=== PATIENT | female | born 1960 | race Two or more races ===

== ENCOUNTER 2017-03-24 08:50 | Emergency (ER) | payer SELFPAY ==
[2017-03-24 08:57] VITALS: BP 160/83; PULSE 98; TEMP 98.4
[2017-03-24] MEDS ORDERED: ONDANSETRON *ODT* 4 MG TABLET SL ONE (10:44)
[2017-03-24] MEDS ORDERED: ONDANSETRON *ODT* 4 MG TABLET ONE (10:48)
--- NOTE | 2017-03-24 10:49 | PDOC ---
History of Present Illness - General Chief Complaint: Pain, Acute Stated Complaint: LT KNEE PAIN Time Seen by Provider: 03/24/17 09:31 History Source: Patient, Family (daughter) Exam Limitations: No Limitations - History of Present Illness Initial Comments: 03/24/17 10:44 56 yr female slipped on wet floor and fell on her left knee at home this am. no loc no head trauma. Occurred: reports: this morning Severity: Yes: severe Lower Ext. Injury Location - Specific Injury Location Knees: left bone tenderness (patella), left swelling, left pain Past History - Past Medical History Allergies/Adverse Reactions: Allergies Allergy/AdvReac Type Severity Reaction Status Date / Time No Known Allergies Allergy Verified 03/24/17 08:52 Home Medications: Ambulatory Orders Oxycodone HCl/Acetaminophen [Percocet 5-325 mg Tablet] 1 tab PO Q6H PRN #12 tablet MDD 6 tabs 03/24/17 Diabetes: Yes - Immunization History Immunization Up to Date: Yes - Psycho/Social/Smoking Cessation Hx Suicidal Ideation: No Smoking History: Never smoked Have you smoked in the past 12 months: No Information on smoking cessation initiated: No Hx Alcohol Use: No Drug/Substance Use Hx: No Substance Use Type: None Review of Systems - Review of Systems Able to Perform ROS?: Yes Is the patient limited Turkish proficient: No Constitutional: No: Symptoms Reported HEENTM: No: Symptoms Reported Respiratory: No: Symptoms reported Cardiac (ROS): No: Symptoms Reported ABD/GI: No: Symptoms Reported Musculoskeletal: Yes: Symptoms Reported Integumentary: No: Symptoms Reported Neurological: No: Symptoms reported *Physical Exam - Vital Signs Last Vital Signs Temp Pulse Resp BP Pulse Ox 98.4 F 98 H 14 160/83 100 03/24/17 08:53 03/24/17 08:53 03/24/17 08:53 03/24/17 08:53 03/24/17 08:53 - Physical Exam General Appearance: Yes: Nourished, Appropriately Dressed HEENT: positive: EOMI, BAILEE Extremity: positive: Normal Capillary Refill, Tender, Swelling (left knee ) Integumentary: positive: Normal Color, Dry, Warm Neurologic: positive: Fully Oriented, Alert, Normal Mood/Affect, Normal Response , Motor Strength 5/5 ED Treatment Course - RADIOLOGY Radiology Studies Ordered: Category Date Time Status KNEE 3 POS-LEFT [RAD] Stat Radiology 03/24/17 09:42 Completed - Consult/PCP Time Called: 10:49 Case discussed with consulting physician: Hipolito Smith Consult Reason/Comments: case discussed with ortho, knee immobilizer and weight bear as tolerated Medical Decision Making - Medical Decision Making 03/24/17 10:49 cc: slip and fall injured left knee this am on wet floor swelling to the knee will place ice and give pain meds xray to r/o fracture case discussed with xray was reviewed by him . plan to dc home with knee immobilizer, weight bear as tolerated call to make appointment for next week discussed the dc plan with the pt and her daughter all questions asked and answered at dc *DC/Admit/Observation/Transfer Diagnosis at time of Disposition: Left patella fracture Qualifiers: Encounter type: initial encounter Fracture type: closed Fracture morphology: transverse Fracture alignment: displaced Qualified Code(s): S82.032A - Displaced transverse fracture of left patella, initial encounter for closed fracture - Discharge Dispostion Disposition: HOME Condition at time of disposition: Fair - Prescriptions Prescriptions: Oxycodone HCl/Acetaminophen [Percocet 5-325 mg Tablet] 1 tab PO Q6H PRN #12 tablet MDD 6 tabs PRN Reason: Severe Pain - Referrals Referrals: Mandy Quinn MD [Primary Care Provider] - Hipolito Smith MD [Staff Physician] - - Patient Instructions Additional Instructions: please call the orthopedist at [phone] to make appointment for next week make sure you tell the office staff that is aware of your xray and said to make appointment as you will need surgery keep the splint on your knee at all times no walking, you may weight bear as tolerated to get to the bathroom please take the percocet for severe pain with food
== END 2017-03-24 11:14 | disposition home or self-care (01) ==
LOC: JERFT 08:50
PROC: 2W3RXYZ Immobilization of Left Lower Leg using Other Device (ICD-10-PCS; principal; 2017-03-24)
DX: S82.032A Displaced transverse fracture of left patella, initial encounter for closed fracture (principal); W01.0XXA Fall on same level from slipping, tripping and stumbling without subsequent striking against object, initial encounter; Y93.89 Activity, other specified; Y92.038 Other place in apartment as the place of occurrence of the external cause; Y99.8 Other external cause status
CPT/HCPCS: 73562-TC-LT; 99281-25

== ENCOUNTER 2017-04-14 07:57 | Day surgery (SDC) | payer OTHER ==
[2017-04-14 08:25] VITALS: BMI 31.5
[2017-04-14] MEDS ORDERED: MIDAZOLAM HCL 2 MG/2 ML SINGLE DOSE VIAL ONE ×2 (08:31→08:35)
[2017-04-14] MEDS ORDERED: KETOROLAC TROMETHAMINE 30 MG/1 ML VIAL ONE (08:32)
[2017-04-14] MEDS ORDERED: ONDANSETRON 4 MG/2 ML VIAL ONE (08:32)
[2017-04-14] MEDS ORDERED: DEXAMETHASONE SOD PHOSPHATE 4 MG/1 ML VIAL ONE (08:32)
[2017-04-14] MEDS ORDERED: ceFAZolin SODIUM 1 GM VIAL ONE (08:32)
[2017-04-14] MEDS ORDERED: ROPIVACAINE HCL 0.5% 30ML VIAL ONE (08:35)
[2017-04-14] MEDS ORDERED: DEXAMETHASONE SOD PHOSPHATE/PF 10 MG/ML SDV ONE (08:35)
[2017-04-14] MEDS ORDERED: oxyCODONE HCL 5 MG TABLET PO PRN ×2 (09:18)
[2017-04-14] MEDS ORDERED: ONDANSETRON 4 MG/2 ML VIAL IVPUSH PRN (09:18)
[2017-04-14] MEDS ORDERED: LACTATED RINGERS SOLUTION 1,000 ML IV SCH (09:30)
--- NOTE | 2017-04-14 11:08 | SURG ---
Surgery South Asian History Professor Note South Asian History Professor: Nicolasa Renee PA-C Date of Service: 04/14/17 Diagnosis: left patella fracture Procedure: Open reduction internal fixation of left patella fracture I was present for the entirety of the operative procedure. For further detail, please refer to operative report. Visit type - Case Type Case Type: Scheduled Admission - Emergency Emergency Visit: No - New patient This patient is new to me today: Yes Date on this admission: 04/14/17
--- NOTE | 2017-04-14 11:08 | OP ---
Operative Note - Note: Operative Date: 04/14/17 Pre-Operative Diagnosis: left patella fracture Operation: Open reduction internal fixation of left patella fracture Post-Operative Diagnosis: Same as Pre-op Surgeon: Damien Slaughter Nurse Charge Rn: Nicolasa Renee Anesthesia: Local (Block) Estimated Blood Loss (mls): 1,000 Operative Report Dictated: Yes
--- NOTE | 2017-04-14 11:34 | OP ---
DATE OF OPERATION: 04/14/2017 PREOPERATIVE DIAGNOSIS: Left displaced patellar fracture. POSTOPERATIVE DIAGNOSIS: Left displaced patellar fracture. PROCEDURE: Left patella open reduction and internal fixation. SURGEON: Damien Prather MD COIN MACHINE ASSEMBLER: MELA Mak, whose skillful assistance was necessary for the safe and timely performance of the procedure. Ms. Renee was able to provide limb positioning assistance, retraction, help with reduction, as well as fixation and insertion of hardware. ANESTHESIA TYPE: Regional plus general. CONDITION: Postoperative condition was stable. COMPLICATIONS: None. INDICATIONS: This is a pleasant woman who suffered a patellar fracture. It was widely displaced. Treatment options including nonoperative versus operative management were discussed. Operative intervention was suggested as the best option to restore the extensor mechanism. The operative risks were reviewed in detail including bleeding, infection, neurovascular injury, need for further surgery, postoperative pain and stiffness, nonunion, malunion, hardware failure, or cut out. We discussed the recovery from surgery. We discussed the use of DVT prophylaxis with aspirin. I reviewed perioperative antibiotic prophylaxis. I addressed all of the patient's questions. We utilized the rotary cutter to be sure of adequate understanding. She voiced understanding and elected to proceed. DESCRIPTION OF PROCEDURE: The patient was brought to the operating room after administration of regional block in the preoperative holding area. The left lower extremity was then prepped and draped in the usual sterile fashion. A preoperative dose of antibiotic was given and the usual time-out procedure was performed. At this point, the limb was elevated and the tourniquet was inflated to 250 mmHg. An incision was carried out in the midline over the patella. This was carried down through skin and subcutaneous tissue. Blunt spreading was used to expose the fracture site, which was widely displaced. The distal pole was highly comminuted and no intact fragments which would support a screw were identified. Both ends were now debrided. It was decided to perform a suture repair in order to provide scientology of the patella. The inferior pole of the patella as well as the attached patellar tendon was now whip-stitched. Three drill holes were now made into the body of the patella utilizing K-wire guidewire placement in order to ensure the correct trajectory. The sutures were now passed through the tunnels. They were tunneled under the periosteum of the proximal patella in order to bury the knots. Maintaining the leg in full extension, all the sutures were now tied. This now brought the inferior pole of the patella into direct approximation with the distal portion of the fracture. The retinaculum, which had been previously dissected free from the surrounding soft tissue, was now repaired using number 1 Vicryl. The deep subcutaneous tissue was approximated using 2-0 Vicryl. The subcutaneous tissue was approximated using 3-0 Vicryl. The skin was closed using running 3-0 nylon. Sterile dressings were placed. The tourniquet was let down. The patient was transferred to the recovery room in stable condition after placement of a cylinder cast. DAMIEN PRATHER M.D. [id number]
[2017-04-14 12:42] VITALS: TEMP 97.5
[2017-04-14 14:30] VITALS: BP 119/62; PULSE 90
== END 2017-04-14 14:33 | disposition home or self-care (01) ==
LOC: FASU 07:57
PROVIDERS: ATTEND Orthopaedic Surgery Sports Medicine
PROC: 0QSF04Z Reposition Left Patella with Internal Fixation Device, Open Approach (ICD-10-PCS; 2017-04-14)
PROC: 0QBF0ZZ Excision of Left Patella, Open Approach (ICD-10-PCS; principal; 2017-04-14 09:31)
DX: S82.002A Unspecified fracture of left patella, initial encounter for closed fracture (principal); X58.XXXA Exposure to other specified factors, initial encounter; Y93.9 Activity, unspecified; Y92.9 Unspecified place or not applicable
CPT/HCPCS: 94760; 97116-GP

== ENCOUNTER 2018-03-27 20:55 | Emergency (ER) | payer OTHER ==
[2018-03-27 21:18] VITALS: BMI 25.2
--- NOTE | 2018-03-27 21:19 | PDOC ---
Rapid Medical Evaluation Chief Complaint: Nausea/Vomiting Time Seen by Provider: 03/27/18 21:13 Medical Evaluation: Allergies Allergy/AdvReac Type Severity Reaction Status Date / Time No Known Allergies Allergy Verified 04/05/17 12:02 03/27/18 21:15 This patient had a brief in-person evaluation by me The patient has a chief complaint of: chills and bodyaches x 1 week. Patient reports bodyaches and chronic coughing. Denies nasal congestion The pertinent physical findings are: appears ill, even and unlabored heart s1s2 The following orders have been placed: labs ordered This patient will proceed to the ED for further evaluation. Discharge Disposition - Referrals Referrals: Mandy Quinn MD [Primary Care Provider] - - Patient Instructions - Post Discharge Activity
[2018-03-27 21:45] LABS: BASO % 0.1 % (0-2.0); EOS % 0.2 % (0-4.5); HEMATOCRIT 29.6 % (32.4-45.2); HEMOGLOBIN 10.3 GM/dL (10.7-15.3); LYMPH % 5.1 % (8-40); MCH 30.4 pg (25.7-33.7); MCHC 34.9 g/dl (32.0-36.0); MEAN CELL VOLUME 87.1 fl (80-96); MEAN PLT VOLUME 7.4 fl (7.5-11.1); MONO % 7.3 % (3.8-10.2); NEUT % 87.3 % (42.8-82.8); PLATELET COUNT 202 K/MM3 (134-434); RDW 13.7 % (11.6-15.6); WHITE BLOOD COUNT 8.9 K/mm3 (4.0-10.0)
[2018-03-27 22:08] LABS: ALBUMIN 3.4 g/dl (3.4-5.0); ANION GAP 10 MMOL/L (8-16); BILIRUBIN,TOTAL 0.5 mg/dL (0.2-1); BLOOD UREA NITROGEN 40 mg/dL (7-18); CALCIUM 8.4 mg/dL (8.5-10.1); CHLORIDE 97 mmol/L (98-107); CO2 25 mmol/L (21-32); CREATININE 2.1 mg/dL (0.55-1.3); POTASSIUM 4.6 mmol/L (3.5-5.1); SGOT/AST 11 U/L (15-37); SGPT/ALT 14 U/L (13-61); SODIUM 132 mmol/L (136-145); TOT PROT 7.2 g/dl (6.4-8.2)
[2018-03-27 22:09] LABS: ALK PHOS 115 U/L (45-117)
[2018-03-27] MEDS ORDERED: SODIUM CHLORIDE 1,000 ML IV STA (22:09)
--- NOTE | 2018-03-27 22:09 | PDOC ---
History of Present Illness - General History Source: Patient Exam Limitations: Language Barrier (daughter translating ) - History of Present Illness Initial Comments: 03/27/18 22:11 57 yo female pmh of diabetes and UTI presents to the ED for 1 week of fevers and chills. Patient admits to right and left LQ pain along the inguinal ligament along with increased frequency and burning on urination for the past 1 week and 2 episodes of NB/NB vomiting for the past 2 days. Denies blood in urine , CP, SOB or changes in bowel habits. <Antonio Rollins - Last Filed: 03/27/18 22:42> <Philly Hyman - Last Filed: 03/28/18 01:01> <Angelica Ely - Last Filed: 03/28/18 04:23> - General Chief Complaint: Nausea/Vomiting Stated Complaint: FEVER, VOMITTING Time Seen by Provider: 03/27/18 21:13 Past History - Past Medical History Anemia: No Asthma: No Cancer: No Cardiac Disorders: No CVA: No COPD: No CHF: No Dementia: No Diabetes: Yes GI Disorders: No Disorders: No HTN: No Hypercholesterolemia: No Liver Disease: No Seizures: No Thyroid Disease: No - Surgical History Abdominal Surgery: No Appendectomy: No Cardiac Surgery: No Cholecystectomy: No Lung Surgery: No Neurologic Surgery: No Orthopedic Surgery: No - Immunization History Immunization Up to Date: Yes - Suicide/Smoking/Psychosocial Hx Smoking History: Never smoked Have you smoked in the past 12 months: No Information on smoking cessation initiated: No Hx Alcohol Use: No Drug/Substance Use Hx: No Substance Use Type: None <Antonio Rollins - Last Filed: 03/27/18 22:42> <Philly Hyman - Last Filed: 03/28/18 01:01> <Angelica Ely - Last Filed: 03/28/18 04:23> - Past Medical History Allergies/Adverse Reactions: Allergies Allergy/AdvReac Type Severity Reaction Status Date / Time No Known Allergies Allergy Verified 03/27/18 21:18 Home Medications: Ambulatory Orders Metformin HCl 850 mg PO BID 04/05/17 Review of Systems - Review of Systems Constitutional: Yes: Chills, Fever. No: Weakness Respiratory: No: Shortness of Breath Cardiac (ROS): No: Chest Pain ABD/GI: Yes: Nausea, Vomiting. No: Constipated, Diarrhea : Yes: Burning, Dysuria, Frequency. No: Flank Pain, Hematuria Musculoskeletal: No: Back Pain Neurological: Yes: Numbness (bilateral hands and feet). No: Weakness <Antonio Rollins - Last Filed: 03/27/18 22:42> *Physical Exam - Vital Signs Last Vital Signs Temp Pulse Resp BP Pulse Ox 102.6 F H 128 H 16 110/57 95 03/27/18 21:13 03/27/18 21:13 03/27/18 21:13 03/27/18 21:13 03/27/18 21:13 - Physical Exam General Appearance: Yes: Nourished, Appropriately Dressed. No: Apparent Distress HEENT: positive: EOMI Respiratory/Chest: positive: Lungs Clear, Normal Breath Sounds. negative: Crackles, Rales Cardiovascular: positive: Regular Rhythm, S1, S2, Tachycardia. negative: Edema , JVD, Murmur Vascular Pulses: Dorsalis-Pedis (R): 4+, Doralis-Pedis (L): 4+ Gastrointestinal/Abdominal: positive: Normal Bowel Sounds, Other (no suprapubic or CVA tenderness). negative: Pulsatile Mass, Distended, Guarding, Rebound, Tenderness Neurologic: positive: Fully Oriented, Alert, Normal Mood/Affect, Normal Response <Antonio Rollins - Last Filed: 03/27/18 22:42> - Vital Signs Last Vital Signs Temp Pulse Resp BP Pulse Ox 99.5 F 99 H 19 110/76 98 03/28/18 00:07 03/28/18 00:07 03/28/18 00:07 03/28/18 00:07 03/28/18 00:07 <Philly Hyman - Last Filed: 03/28/18 01:01> - Vital Signs Last Vital Signs Temp Pulse Resp BP Pulse Ox 98.5 F 115 H 19 121/74 98 03/28/18 01:02 03/28/18 01:02 03/28/18 01:02 03/28/18 01:02 03/28/18 00:07 <Angelica Ely - Last Filed: 03/28/18 04:23> ED Treatment Course - LABORATORY CBC & Chemistry Diagram: 03/27/18 21:31 03/27/18 21:31 - ADDITIONAL ORDERS Additional order review: 03/27/18 21:31 RBC 3.40 L MCV 87.1 MCHC 34.9 RDW 13.7 MPV 7.4 L Neutrophils % 87.3 H Lymphocytes % 5.1 L Monocytes % 7.3 Eosinophils % 0.2 Basophils % 0.1 <AyoAntonio - Last Filed: 03/27/18 22:42> - LABORATORY CBC & Chemistry Diagram: 03/27/18 21:31 03/27/18 21:31 - ADDITIONAL ORDERS Additional order review: Laboratory Results 03/27/18 03/27/18 03/27/18 22:47 22:37 22:08 PT with INR INR PTT (Actin FS) Sodium Potassium Chloride Carbon Dioxide Anion Gap BUN Creatinine Creat Clearance w eGFR POC Glucometer [phone] Random Glucose Lactic Acid 1.1 Calcium Total Bilirubin AST ALT Alkaline Phosphatase Creatine Kinase Troponin I Total Protein Albumin Urine Color Ltyellow Urine Appearance Clear Urine pH 6.0 Ur Specific [place] 1.010 Urine Protein 2+ H Urine Glucose (UA) 3+ H Urine Ketones Negative Urine Blood 1+ H Urine Nitrite Negative Urine Bilirubin Negative Urine Urobilinogen Negative Ur Leukocyte Esterase 3+ H Urine WBC (Auto) 109 Urine RBC (Auto) 2 Ur Epithelial Cells Rare Urine Bacteria Rare Urine Mucus Rare Acetone, Qual 03/27/18 03/27/18 03/27/18 21:31 21:31 21:29 PT with INR 12.70 INR 1.12 H PTT (Actin FS) 28.4 Sodium 132 L Potassium 4.6 Chloride 97 L Carbon Dioxide 25 Anion Gap 10 BUN 40 H Creatinine 2.1 H Creat Clearance w eGFR 24.36 POC Glucometer Random Glucose 302 H* Lactic Acid Calcium 8.4 L Total Bilirubin 0.5 AST 11 L ALT 14 Alkaline Phosphatase 115 Creatine Kinase 120 Troponin I 0.45 H Total Protein 7.2 Albumin 3.4 Urine Color Urine Appearance Urine pH Ur Specific Deep [place] Urine Protein Urine Glucose (UA) Urine Ketones Urine Blood Urine Nitrite Urine Bilirubin Urine Urobilinogen Ur Leukocyte Esterase Urine WBC (Auto) Urine RBC (Auto) Ur Epithelial Cells Urine Bacteria Urine Mucus Acetone, Qual Negative L 03/27/18 03/27/18 22:47 21:31 RBC 3.40 L MCV 87.1 MCHC 34.9 RDW 13.7 MPV 7.4 L Neutrophils % 87.3 H Lymphocytes % 5.1 L Monocytes % 7.3 Eosinophils % 0.2 Basophils % 0.1 POC Glucometer [phone] - Medications Given in the ED: ED Medications Discontinued Medications Generic Name Dose Route Start Last Admin Trade Name Tiffanie PRN Reason Stop Dose Admin Acetaminophen 1,000 mg 03/27/18 22:10 03/27/18 22:36 Ofirmev Injection - IVPB 03/27/18 22:11 1,000 mg ONCE ONE Administration Aspirin 324 mg 03/27/18 22:56 03/27/18 23:17 Asa - PO 03/27/18 22:57 324 mg ONCE ONE Administration Sodium Chloride 1,000 mls @ 1,000 mls/hr 03/27/18 22:09 03/27/18 22:36 Normal Saline - IV 03/27/18 23:08 1,000 mls/hr ASDIR STA Administration Ceftriaxone Sodium 1 gm/ 100 mls @ 200 mls/hr 03/27/18 22:45 03/27/18 22:53 Dextrose IVPB 03/27/18 23:14 200 mls/hr ONCE ONE Administration Protocol Sodium Chloride 1,000 ml 03/27/18 23:40 03/28/18 00:06 Normal Saline - IV 03/27/18 23:41 1,000 ml ONCE ONE Administration <Philly Hyman - Last Filed: 03/28/18 01:01> - LABORATORY CBC & Chemistry Diagram: 03/27/18 21:31 03/27/18 21:31 - ADDITIONAL ORDERS Additional order review: Laboratory Results 03/27/18 03/27/18 03/27/18 22:47 22:37 22:08 PT with INR INR PTT (Actin FS) Sodium Potassium Chloride Carbon Dioxide Anion Gap BUN Creatinine Creat Clearance w eGFR POC Glucometer 345.67881 Random Glucose Lactic Acid 1.1 Calcium Total Bilirubin AST ALT Alkaline Phosphatase Creatine Kinase Troponin I Total Protein Albumin Urine Color Ltyellow Urine Appearance Clear Urine pH 6.0 Ur Specific [place] 1.010 Urine Protein 2+ H Urine Glucose (UA) 3+ H Urine Ketones Negative Urine Blood 1+ H Urine Nitrite Negative Urine Bilirubin Negative Urine Urobilinogen Negative Ur Leukocyte Esterase 3+ H Urine WBC (Auto) 109 Urine RBC (Auto) 2 Ur Epithelial Cells Rare Urine Bacteria Rare Urine Mucus Rare Acetone, Qual 03/27/18 03/27/18 03/27/18 21:31 21:31 21:29 PT with INR 12.70 INR 1.12 H PTT (Actin FS) 28.4 Sodium 132 L Potassium 4.6 Chloride 97 L Carbon Dioxide 25 Anion Gap 10 BUN 40 H Creatinine 2.1 H Creat Clearance w eGFR 24.36 POC Glucometer Random Glucose 302 H* Lactic Acid Calcium 8.4 L Total Bilirubin 0.5 AST 11 L ALT 14 Alkaline Phosphatase 115 Creatine Kinase 120 Troponin I 0.45 H Total Protein 7.2 Albumin 3.4 Urine Color Urine Appearance Urine pH Ur Specific [place] Urine Protein Urine Glucose (UA) Urine Ketones Urine Blood Urine Nitrite Urine Bilirubin Urine Urobilinogen Ur Leukocyte Esterase Urine WBC (Auto) Urine RBC (Auto) Ur Epithelial Cells Urine Bacteria Urine Mucus Acetone, Qual Negative L 03/27/18 03/27/18 22:47 21:31 RBC 3.40 L MCV 87.1 MCHC 34.9 RDW 13.7 MPV 7.4 L Neutrophils % 87.3 H Lymphocytes % 5.1 L Monocytes % 7.3 Eosinophils % 0.2 Basophils % 0.1 POC Glucometer 345.14890 - Medications Given in the ED: ED Medications Discontinued Medications Generic Name Dose Route Start Last Admin Trade Name Tiffanie PRN Reason Stop Dose Admin Acetaminophen 1,000 mg 03/27/18 22:10 03/27/18 22:36 Ofirmev Injection - IVPB 03/27/18 22:11 1,000 mg ONCE ONE Administration Aspirin 324 mg 03/27/18 22:56 03/27/18 23:17 Asa - PO 03/27/18 22:57 324 mg ONCE ONE Administration Heparin Sodium (Porcine) 4,000 unit 03/28/18 00:24 03/28/18 01:01 Heparin - IVPUSH 03/28/18 00:25 4,000 unit ONCE ONE Administration Sodium Chloride 1,000 mls @ 1,000 mls/hr 03/27/18 22:09 03/27/18 22:36 Normal Saline - IV 03/27/18 23:08 1,000 mls/hr ASDIR STA Administration Ceftriaxone Sodium 1 gm/ 100 mls @ 200 mls/hr 03/27/18 22:45 03/27/18 22:53 Dextrose IVPB 03/27/18 23:14 200 mls/hr ONCE ONE Administration Protocol Sodium Chloride 1,000 ml 03/27/18 23:40 03/28/18 00:06 Normal Saline - IV 03/27/18 23:41 1,000 ml ONCE ONE Administration <Angelica Ely - Last Filed: 03/28/18 04:23> Medical Decision Making - Medical Decision Making 03/27/18 22:16 57 yo female pmh diabetes and uti presents to ED for 1 week of F/C, burning and increased frequency on urination. Patient well appearing but vitals on arrival shows high temp and tachycardia. UA, urine culture along with blood culture, lactate ordered. Will re-assess after results to determine if imaging is required. DDX: diverticulitis vs appendicitis vs kidney stone vs UTI fluids and tylenol given Resting comfortably <Antonio Rollins - Last Filed: 03/27/18 22:42> - Medical Decision Making 03/28/18 00:41 Call placed to [facility] for ER to ER transfer, STEMI. Case was discussed with Dr. Luu, director cardiology. Case was auto-accepted to Dr. Batres, ED attending. ETA 1:00am. 03/28/18 1:00 am Transfer team arrived, patient left facility. <Philly Hyman - Last Filed: 03/28/18 01:01> *DC/Admit/Observation/Transfer - Discharge Dispostion Decision to Admit order: Yes <Antonio Rollins - Last Filed: 03/27/18 22:42> <Philly Hyman - Last Filed: 03/28/18 01:01> - Discharge Dispostion Decision to Admit order: No <Angelica Ely - Last Filed: 03/28/18 04:23> Diagnosis at time of Disposition: UTI (urinary tract infection) Qualifiers: Urinary tract infection type: site unspecified Hematuria presence: with hematuria Qualified Code(s): N39.0 - Urinary tract infection, site not specified - Discharge Dispostion Disposition: TRANSFER ACUTE CARE/OTHER HOSP - Referrals Referrals: Mandy Quinn MD [Primary Care Provider] - - Patient Instructions - Post Discharge Activity
[2018-03-27] MEDS ORDERED: ACETAMINOPHEN 1000 MG/100 ML VIAL (NON FORMULARY) IVPB ONE (22:10)
[2018-03-27 22:13] LABS: GLUCOSE,RANDOM 302 mg/dL (74-106)
[2018-03-27 22:19] LABS: URINE APPEARANCE CLEAR; URINE BILIRUBIN NEGATIVE (<2.0 mg/dL); URINE COLOR LTYELLOW; URINE GLUCOSE (UA) 3+ (NEGATIVE); URINE KETONE NEGATIVE (NEGATIVE); URINE NITRITE NEGATIVE (NEGATIVE); URINE UROBILINOGEN NEGATIVE mg/dL (0.2-1.0)
[2018-03-27 22:20] LABS: ACTIVATED PTT 28.4 SECONDS (25.2-36.5); INR 1.12 (0.83-1.09); PROTHROMBIN TIME (PATIENT) 12.7 SEC (9.7-13.0)
[2018-03-27 22:21] LABS: URINE LEUK ESTERASE 3+ (NEGATIVE); URINE PROTEIN 2+ (NEGATIVE)
[2018-03-27] MEDS ORDERED: ACETAMINOPHEN INJECTION 100 ML IVPB ONE (22:22)
[2018-03-27 22:25] LABS: EPI CELLS RARE /HPF (FEW); URINE BACTERIA RARE /hpf (NONE SEEN); URINE MUCUS RARE
[2018-03-27] MEDS ORDERED: CEFTRIAXONE 1 GM in DEXTROSE 5%-WATER - 100 ML IVPB ONE (22:45)
[2018-03-27] MEDS ORDERED: CEFTRIAXONE 1 GM/50 ML BAG ONE (22:49)
[2018-03-27] MEDS ORDERED: ASPIRIN 81 MG CHEWABLE TABLETS PO ONE (22:56)
[2018-03-27] MEDS ORDERED: ASPIRIN 81 MG CHEWABLE TABLETS ONE (23:07)
[2018-03-27 23:27] LABS: ACETONE SERUM NEGATIVE (NEGATIVE)
[2018-03-27] MEDS ORDERED: SODIUM CHLORIDE 0.9% 1000 ML INFUS.BAG IV ONE (23:40)
--- NOTE | 2018-03-27 23:40 | PDOC ---
Attending Attestation - [facility] HPI: 03/27/18 23:40 The patient is a 57 year old female with a significant past medical history of DM and UTIs who presents to the ER with nausea, two episodes of nonbloody nonbilious vomit, fever, and chills for the past week. Patient is complaining of right and left lower quadrant pain. Patient endorses increased urinary frequency and dysuria for the past week. Patient admits to a chronic cough but has no chest pain or shortness of breath here in the ER. Patient has no prior EKG or stress testing. Patient has no cardiac history and does not follow up with a executive account manager. The patient denies chest pain, shortness of breath, headache, and dizziness. Denies fever, chills, diarrhea, and constipation. Denies hematuria. Allergies: NKA Past surgical history: None reported. Social history: None reported. PCP: Dr. Quinn <Jessie An - Last Filed: 03/27/18 23:42> - Resident Resident Name: Antonio Rollins - ED Attending Attestation I have performed the following: I have examined & evaluated the patient, The case was reviewed & discussed with the resident, I agree w/resident's findings & plan, Exceptions are as noted - HPI HPI: 03/27/18 23:35 03/27/18 23:37 - Physicial Exam PE: 03/27/18 23:36 awake alert lungs clear bilaterally heart rrr no mrg. abd soft nt nd. no cva tenderness. ext wwp no edema no calf tenderness. nuero alert oriented c 3 - Medical Decision Making 03/27/18 23:36 57 yo f with h/o DM, prior UTI here with c/o n/v abd pain and dysuria. started few days ago. pt also has chronic cough which she has had for several years. no cp no sob no chest pressure. no family h/o cad. no prior ekg or stress test. no other gi sxs. lower abd pain bilateral, no rebound no guarding. no flank pain. no hematuria. pt with n/v urinary sxs and fever. differential sepsis, uti, renal failure dehydration anemia. plan ekg labs cxr. pt with uti will treat with ivf, abx. due to sepsis criteria, h/o frequent infection and dm will admit for uti pyloe, sepsis. given ceftriaxone and fluid resuscitation. 03/27/18 23:38 03/28/18 00:16 pt with abnormal ekg in septal lead V2, TWI AVL denies cp or sob. no family h/o cad. pt no prior cardiac workup, no cath on file. called Dr. Ospina for old ekg no answering service. however trop positive .45. pt septic, will d/w transfer. d/w transfer center at [facility]. unsure if cath candidate due to sepsis. will evaluate pt in ed at [facility]. d/w DR Lala, accepted by DR Chapa. recommend heparin 4000 bolus and heparin drip. asa given . 03/28/18 00:34 <Angelica Ely - Last Filed: 03/28/18 00:38> Heart Score/ECG Review #1 General ECG Interpretation: Sinus Rhythm, Normal Rate, Normal Intervals Compared to previous ECG there are: Previous ECG unavail (no old comparison EKG > TWI AVL,) - ECG Intrepretation Rhythm: Regular Rhythm - Opp Opp: Normal <Angelica Ely - Last Filed: 03/28/18 00:38>
--- NOTE | 2018-03-27 23:44 | PN ---
Teaching Attending Note Name of Resident: Pedro Whitfield ATTENDING PHYSICIAN STATEMENT I saw and evaluated the patient. I reviewed the resident's note and discussed the case with the resident. I agree with the resident's findings and plan as documented. SUBJECTIVE: Patient is 57 year old woman with PMH of NIDDM, left patella fracture and UTI presents to the ER for 1 week of fevers and chills. Patient admits to right and left LQ pain along the inguinal ligament as well as increased frequency and burning on urination for the past 1 week. Had two episodes of vomiting in the past 2 days. Denies blood in urine, chest pain, SOB or changes in bowel habits. OBJECTIVE: Alert Vital Signs Period Temp Pulse Resp BP Sys/[place] Pulse Ox Last 24 Hr 102.6 F 128 16 110/57 95 HEENT: No Jaundice, eye redness or discharge, PERRLA, EOMI. Normocephalic, atraumatic. External ears are normal and hearing is grossly intact. No nasal discharge. Neck: Supple, nontender. No palpable adenopathy or thyromegaly. No JVD Chest: Good effort. Clear to auscultation and percussion. Heart: Regular. No S3, rub or murmur Abdomen: Not distended, soft, nontender and no HSM. No rebound or guarding. Normoactive bowel sounds. Ext: Peripheral pulses intact. No leg edema. Skin: Warm and dry. No petechiae, rash or ecchymosis. Neuro: Alert. Oriented x3. CN 2-12 grossly intact. Sensation grossly intact in all four extremities and DTR are symmetric. Home Medications Medication Instructions Recorded Metformin HCl 850 mg PO BID 04/05/17 Abnormal Lab Results 03/27/18 03/27/18 03/27/18 21:31 21:31 21:31 RBC 3.40 L Hgb 10.3 L Hct 29.6 L MPV 7.4 L Neutrophils % 87.3 H Lymphocytes % 5.1 L INR 1.12 H Sodium 132 L Chloride 97 L BUN 40 H Creatinine 2.1 H Random Glucose 302 H* Calcium 8.4 L AST 11 L Urine Protein Urine Glucose (UA) Urine Blood Ur Leukocyte Esterase Acetone, Qual Negative L 03/27/18 22:08 RBC Hgb Hct MPV Neutrophils % Lymphocytes % INR Sodium Chloride BUN Creatinine Random Glucose Calcium AST Urine Protein 2+ H Urine Glucose (UA) 3+ H Urine Blood 1+ H Ur Leukocyte Esterase 3+ H Acetone, Qual ASSESSMENT AND PLAN: 1. Sepsis due to UTI - 2. DM - For now, we will hold the home diabetes drugs and implement sliding scale insulin regimen. Provide comprehensive diabetes care with patient teaching and counseling about the importance of euglycemia, eye care and foot care. 3. CKD? - Need to rule out diabetic nephropathy. Consult nephrology and avoid nephrotoxic agents such as NSAIDS, aminoglycosides, contrast dyes and certain Alternative medicine products. 4. Anemia - May be partly due to CKD. Do basic anemia work up including serial stool guaiacs, reticulocyte count and iron studies. Would benefit from Procrit therapy once iron replete. 5. DVT prophylaxis - Heparin 5000u sq tid. 6. Advance directives - Full code
[2018-03-28] MEDS ORDERED: HEPARIN NA (PORCINE) 5,000 UNITS/ML 1ML VIAL IVPUSH ONE (00:24)
[2018-03-28] MEDS ORDERED: HEPARIN NA (PORCINE) 5,000 UNITS/ML 1ML VIAL IVPUSH PRN (00:24)
[2018-03-28] MEDS ORDERED: HEPARIN - 25,000 UNIT in SODIUM CHLORIDE 495 ML IV SCH (00:30)
[2018-03-28] MEDS ORDERED: HEPARIN INFUSION - 25,000 UNITS/500 ML INFUS.BAG IVPB ONE (00:49)
[2018-03-28] MEDS ORDERED: HEPARIN NA (PORCINE) 5,000 UNITS/ML 1ML VIAL ONE (00:49)
[2018-03-28 01:04] VITALS: BP 121/74; PULSE 115; TEMP 98.5
--- NOTE | 2018-03-28 16:19 | EKG ---
Test Reason : Blood Pressure : / mmHG Vent. Rate : 110 BPM Atrial Rate : 110 BPM P-R Int : 148 ms QRS Dur : 068 ms QT Int : 322 ms P-R-T Axes : 069 033 064 degrees QTc Int : 435 ms SINUS TACHYCARDIA LOW VOLTAGE QRS SEPTAL INFARCT (CITED ON OR BEFORE 27-MAR-2018) ABNORMAL ECG WHEN COMPARED WITH ECG OF 27-MAR-2018 22:44, T WAVE INVERSION MORE EVIDENT IN ANTERIOR LEADS Confirmed by Francis Street ([id number]) on 03/28/2018 4:18:51 PM Referred By: Confirmed By:Francis Street
--- NOTE | 2018-03-28 16:43 | EKG ---
Test Reason : Blood Pressure : / mmHG Vent. Rate : 113 BPM Atrial Rate : 113 BPM P-R Int : 146 ms QRS Dur : 066 ms QT Int : 310 ms P-R-T Axes : 061 031 083 degrees QTc Int : 425 ms SINUS TACHYCARDIA LOW VOLTAGE QRS SEPTAL INFARCT , AGE UNDETERMINED ABNORMAL ECG NO PREVIOUS ECGS AVAILABLE Confirmed by Francis Street ([id number]) on 03/28/2018 4:43:11 PM Referred By: Confirmed By:Francis Street
== END 2018-03-28 01:04 | disposition short-term general hospital (02) ==
LOC: JER 20:55
PROC: 3E0337Z Introduction of Electrolytic and Water Balance Substance into Peripheral Vein, Percutaneous Approach (ICD-10-PCS; principal; 2018-03-27)
PROC: 3E033NZ Introduction of Analgesics, Hypnotics, Sedatives into Peripheral Vein, Percutaneous Approach (ICD-10-PCS; 2018-03-27)
PROC: 3E03329 Introduction of Other Anti-infective into Peripheral Vein, Percutaneous Approach (ICD-10-PCS; 2018-03-27)
PROC: 3E033GC Introduction of Other Therapeutic Substance into Peripheral Vein, Percutaneous Approach (ICD-10-PCS; 2018-03-27)
PROC: 3E0337Z Introduction of Electrolytic and Water Balance Substance into Peripheral Vein, Percutaneous Approach (ICD-10-PCS; 2018-03-27)
DX: N39.0 Urinary tract infection, site not specified (principal); E11.9 Type 2 diabetes mellitus without complications
CPT/HCPCS: 36415; 71046-TC-FY; 80053; 81003; 81015; 82009; 82550; 82962; 83605; 84484; 85025; 85610; 85730; 87040; 87086; 87186; 93005; 93010; 99284-25; J0131; J1644; J7030

== ENCOUNTER 2022-05-06 16:26 | Emergency (ER) | payer OTHER ==
[2022-05-06 17:02] VITALS: BP 105/40; PULSE 70; RESP 18; TEMP 98.7; BMI 24.9
[2022-05-06] MEDS ORDERED: ACETAMINOPHEN 325 MG TABLET (FP) PO ONE (18:06)
[2022-05-06] MEDS ORDERED: ACETAMINOPHEN 325 MG TABLET (FP) ONE (18:18)
== END 2022-05-06 20:30 | disposition home or self-care (01) ==
LOC: FER 16:26
DX: S82.152A Displaced fracture of left tibial tuberosity, initial encounter for closed fracture (principal); W01.0XXA Fall on same level from slipping, tripping and stumbling without subsequent striking against object, initial encounter
CPT/HCPCS: 73110-TC-RT-FY; 73130-TC-RT-FY; 73562-TC-LT-FY; 73590-TC-LT-FY; 99284-25

== ENCOUNTER 2024-03-07 12:44 | Inpatient (IN) | payer OTHER ==
[2024-03-07 14:44] LABS: HEMATOCRIT 23.3 % (32.4-45.2); HEMOGLOBIN 7.8 GM/dL (10.7-15.3); MCHC 33.6 g/dl (32.0-36.0); MEAN PLT VOLUME 6.6 fl (7.5-11.1); PLATELET COUNT 282 10^3/uL (134-434); RBC 2.53 M/mm3 (3.60-5.2); WHITE BLOOD COUNT 23.7 K/mm3 (4.0-10.0)
[2024-03-07] MEDS: SODIUM CHLORIDE 0.9% 500 ML INFUS.BAG IV ONE (14:56)
[2024-03-07 15:12] LABS: ANISOCYTOSIS 0; MACROCYTOSIS 0
[2024-03-07 15:13] LABS: EPI CELLS 4 /uL (0-25.1); HYALINE CASTS 1 /uL (0-3.1); URINE APPEARANCE TURBID; URINE BACTERIA >9,000 /uL (0-1359); URINE BILIRUBIN NEGATIVE (NEGATIVE); URINE COLOR YELLOW; URINE GLUCOSE (UA) NEGATIVE (NEGATIVE); URINE KETONE TRACE (NEGATIVE); URINE LEUK ESTERASE 3+ (NEGATIVE); URINE NITRITE NEGATIVE (NEGATIVE); URINE PROTEIN 1+ (NEGATIVE); URINE RBC 68 /uL (0-23.9); URINE WBC 6290 /uL (0-25.8)
[2024-03-07 15:41] LABS: ALBUMIN 3.1 g/dl (3.4-5.0); BILIRUBIN,TOTAL 0.9 mg/dL (0.2-1); BLOOD UREA NITROGEN 37.7 mg/dL (7-18); CALCIUM 8.5 mg/dL (8.5-10.1); CREATININE 2.2 mg/dL (0.55-1.3); POTASSIUM 4.7 mmol/L (3.5-5.1); TOT PROT 6.6 g/dl (6.4-8.2)
[2024-03-07 16:01] LABS: VENOUS BASE EXCESS -2.4 mmol/L (-2-2); VENOUS PCO2 37.7 mmHg (38-52); VENOUS PH 7.39 (7.310-7.410)
[2024-03-07 16:23] LABS: HIV INTERPRETATION NEGATIVE (NEGATIVE)
[2024-03-07] MEDS ORDERED: CEFTRIAXONE 1 GM/50 ML BAG ONE (17:02)
[2024-03-07] MEDS: CEFTRIAXONE 1 GM in DEXTROSE 5%-WATER - 100 ML IVPB ONE (17:09)
[2024-03-07] MEDS: SODIUM CHLORIDE 1,000 ML IV SCH (18:25)
[2024-03-07] MEDS: INSULIN ASPART SLIDING SCALE (NOVOLOG) 1 VIAL SQ SCH (22:35)
[2024-03-07] MEDS ORDERED: HEPARIN NA (PORCINE) 5,000 UNITS/ML 1ML VIAL ONE (22:40)
[2024-03-07] MEDS: HEPARIN NA (PORCINE) 5,000 UNITS/ML 1ML VIAL SQ SCH (22:41)
[2024-03-08] MEDS: SODIUM CHLORIDE 500 ML IV STA ×2 (00:16→01:25)
[2024-03-08] MEDS: MIDODRINE HCL 5 MG TABLET PO ONE (02:18)
[2024-03-08] MEDS ORDERED: SODIUM CHLORIDE 1,000 ML IV SCH (04:57)
[2024-03-08] MEDS: INSULIN ASPART SLIDING SCALE (NOVOLOG) 1 VIAL SQ SCH (07:33)
[2024-03-08 08:17] LABS: BASO % 0.3 % (0-2.0); EOS % 0.1 % (0-4.5); HEMOGLOBIN 7.7 GM/dL (10.7-15.3); LYMPH % 4.9 % (8-40); MCHC 33.6 g/dl (32.0-36.0); MEAN CELL VOLUME 92.4 fl (80-96); MEAN PLT VOLUME 6.9 fl (7.5-11.1); MONO % 5.3 % (3.8-10.2); NEUT % 89.4 % (42.8-82.8); PLATELET COUNT 287 10^3/uL (134-434); RDW 13.3 % (11.6-15.6)
[2024-03-08 08:26] LABS: POTASSIUM 4.3 mmol/L (3.5-5.1)
[2024-03-08 08:31] LABS: CALCIUM 8.1 mg/dL (8.5-10.1)
[2024-03-08 08:32] LABS: BLOOD UREA NITROGEN 36.7 mg/dL (7-18); MAGNESIUM 2.2 mg/dL (1.8-2.4)
[2024-03-08 08:35] LABS: PHOSPHOROUS 3.8 mg/dL (2.5-4.9)
[2024-03-08 08:36] LABS: BILIRUBIN,TOTAL 0.8 mg/dL (0.2-1); TOT PROT 5.5 g/dl (6.4-8.2)
[2024-03-08] MEDS: LACTATED RINGERS SOLUTION 1,000 ML/1,000 ML INFUS.BAG IV STA (08:39)
[2024-03-08 08:54] LABS: ALBUMIN 2.4 g/dl (3.4-5.0)
[2024-03-08 09:11] LABS: ANISOCYTOSIS 0; MACROCYTOSIS 0
[2024-03-08] MEDS: MIDODRINE HCL 5 MG TABLET PO SCH (09:31)
[2024-03-08] MEDS: ASPIRIN COATED 81 MG TABLET.EC PO SCH (09:32)
[2024-03-08] MEDS: FAMOTIDINE 20 MG TABLET PO SCH (09:32)
[2024-03-08] MEDS: HEPARIN NA (PORCINE) 5,000 UNITS/ML 1ML VIAL SQ SCH (09:32)
[2024-03-08] MEDS: MEROPENEM 1 GM in DEXTROSE 5%-WATER 100 ML IVPB SCH ×2 (09:33→15:08)
[2024-03-08] MEDS ORDERED: CEFTRIAXONE 1 GM in DEXTROSE 5%-WATER - 50 ML IVPB SCH (10:00)
[2024-03-08] MEDS ORDERED: ATORVASTATIN CA 80 MG TABLET (FP) PO SCH (10:00)
[2024-03-08] MEDS ORDERED: ASPIRIN COATED 81 MG TABLET.EC PO SCH (10:00)
[2024-03-08] MEDS: LACTATED RINGERS SOLUTION 1,000 ML/1,000 ML INFUS.BAG IV SCH (11:33)
[2024-03-08 18:10] LABS: HEMATOCRIT 23.8 % (32.4-45.2); HEMOGLOBIN 7.8 GM/dL (10.7-15.3); MCH 30.3 pg (25.7-33.7); MCHC 32.9 g/dl (32.0-36.0); MEAN PLT VOLUME 7.1 fl (7.5-11.1); PLATELET COUNT 271 10^3/uL (134-434); RBC 2.59 M/mm3 (3.60-5.2); RDW 13.5 % (11.6-15.6); WHITE BLOOD COUNT 17.8 K/mm3 (4.0-10.0)
[2024-03-08] MEDS: PIPERACILLIN/TAZOB 3.375 GM 3.375 GM in DEXTROSE 5%-WATER - 50 ML IVPB SCH (22:32)
[2024-03-08] MEDS: ATORVASTATIN CA 80 MG TABLET (FP) PO SCH (22:33)
[2024-03-09 08:39] LABS: HEMATOCRIT 22.2 % (32.4-45.2); HEMOGLOBIN 7.5 GM/dL (10.7-15.3); MCH 31.3 pg (25.7-33.7); MCHC 33.8 g/dl (32.0-36.0); MEAN CELL VOLUME 92.5 fl (80-96); MEAN PLT VOLUME 6.9 fl (7.5-11.1); PLATELET COUNT 275 10^3/uL (134-434); RDW 13.4 % (11.6-15.6); WHITE BLOOD COUNT 11.3 K/mm3 (4.0-10.0)
[2024-03-09 08:54] LABS: POTASSIUM 4.8 mmol/L (3.5-5.1)
[2024-03-09 09:10] LABS: ALBUMIN 2.2 g/dl (3.4-5.0); CALCIUM 8.1 mg/dL (8.5-10.1)
[2024-03-09 09:11] LABS: BLOOD UREA NITROGEN 25.7 mg/dL (7-18)
[2024-03-09 09:13] LABS: CREATININE 1.5 mg/dL (0.55-1.3)
[2024-03-09 09:14] LABS: BILIRUBIN,TOTAL 0.6 mg/dL (0.2-1); TOT PROT 5.3 g/dl (6.4-8.2)
[2024-03-10 08:15] LABS: HEMATOCRIT 22.6 % (32.4-45.2); HEMOGLOBIN 7.8 GM/dL (10.7-15.3); MCH 31.7 pg (25.7-33.7); MCHC 34.4 g/dl (32.0-36.0); MEAN CELL VOLUME 92.4 fl (80-96); MEAN PLT VOLUME 7.1 fl (7.5-11.1); PLATELET COUNT 291 10^3/uL (134-434); RBC 2.44 M/mm3 (3.60-5.2); RDW 13.1 % (11.6-15.6); WHITE BLOOD COUNT 6.6 K/mm3 (4.0-10.0)
[2024-03-10 08:19] LABS: POTASSIUM 5.2 mmol/L (3.5-5.1)
[2024-03-10 08:21] LABS: BLOOD UREA NITROGEN 22.6 mg/dL (7-18); CALCIUM 8.7 mg/dL (8.5-10.1)
[2024-03-10 08:35] LABS: CREATININE 1.6 mg/dL (0.55-1.3)
[2024-03-10 10:09] VITALS: BMI 21.8
[2024-03-10] MEDS: LACTATED RINGERS SOLUTION 1,000 ML/1,000 ML INFUS.BAG IV SCH (17:05)
[2024-03-11 07:58] LABS: POTASSIUM 4.9 mmol/L (3.5-5.1)
[2024-03-11 08:09] LABS: CALCIUM 8.7 mg/dL (8.5-10.1)
[2024-03-11 08:10] LABS: ALBUMIN 2.5 g/dl (3.4-5.0); BLOOD UREA NITROGEN 17.4 mg/dL (7-18)
[2024-03-11 08:13] LABS: CREATININE 1.4 mg/dL (0.55-1.3)
[2024-03-11 08:15] LABS: BILIRUBIN,TOTAL 0.9 mg/dL (0.2-1); TOT PROT 5.9 g/dl (6.4-8.2)
[2024-03-11 08:22] LABS: BASO % 0.9 % (0-2.0); EOS % 2.1 % (0-4.5); HEMATOCRIT 24.3 % (32.4-45.2); HEMOGLOBIN 8.3 GM/dL (10.7-15.3); LYMPH % 28.1 % (8-40); MCH 31.4 pg (25.7-33.7); MEAN CELL VOLUME 92.2 fl (80-96); MEAN PLT VOLUME 6.8 fl (7.5-11.1); MONO % 4.7 % (3.8-10.2); NEUT % 64.2 % (42.8-82.8); PLATELET COUNT 309 10^3/uL (134-434); RBC 2.63 M/mm3 (3.60-5.2); RDW 12.9 % (11.6-15.6); WHITE BLOOD COUNT 6.7 K/mm3 (4.0-10.0)
[2024-03-11 15:50] VITALS: RESP 18
[2024-03-12 09:14] LABS: HEMATOCRIT 26.2 % (32.4-45.2); MCH 31.4 pg (25.7-33.7); MCHC 34.3 g/dl (32.0-36.0); MEAN CELL VOLUME 91.7 fl (80-96); MEAN PLT VOLUME 6.9 fl (7.5-11.1); PLATELET COUNT 368 10^3/uL (134-434); RBC 2.85 M/mm3 (3.60-5.2); RDW 12.9 % (11.6-15.6); WHITE BLOOD COUNT 6.3 K/mm3 (4.0-10.0)
[2024-03-12 09:47] LABS: POTASSIUM 4.7 mmol/L (3.5-5.1)
[2024-03-12 09:55] LABS: BLOOD UREA NITROGEN 18.2 mg/dL (7-18); CALCIUM 9.1 mg/dL (8.5-10.1)
[2024-03-12 09:59] LABS: CREATININE 1.6 mg/dL (0.55-1.3)
[2024-03-12 10:00] LABS: BILIRUBIN,TOTAL 0.7 mg/dL (0.2-1); TOT PROT 6.8 g/dl (6.4-8.2)
[2024-03-12] MEDS: CEFTRIAXONE 1 GM in DEXTROSE 5%-WATER - 50 ML IVPB SCH (12:30)
[2024-03-13 07:12] LABS: HEMATOCRIT 25.5 % (32.4-45.2); HEMOGLOBIN 8.8 GM/dL (10.7-15.3); MCH 31.7 pg (25.7-33.7); MCHC 34.6 g/dl (32.0-36.0); MEAN CELL VOLUME 91.8 fl (80-96); MEAN PLT VOLUME 6.2 fl (7.5-11.1); PLATELET COUNT 353 10^3/uL (134-434); RBC 2.77 M/mm3 (3.60-5.2); RDW 13.2 % (11.6-15.6); WHITE BLOOD COUNT 6.8 K/mm3 (4.0-10.0)
[2024-03-13 07:25] LABS: POTASSIUM 4.8 mmol/L (3.5-5.1)
[2024-03-13 07:30] LABS: ALBUMIN 2.9 g/dl (3.4-5.0); BLOOD UREA NITROGEN 19.4 mg/dL (7-18)
[2024-03-13 07:32] LABS: CREATININE 1.5 mg/dL (0.55-1.3)
[2024-03-13 07:34] LABS: BILIRUBIN,TOTAL 0.4 mg/dL (0.2-1); TOT PROT 6.7 g/dl (6.4-8.2)
[2024-03-13 09:18] VITALS: BP 117/57; PULSE 76; TEMP 97.7
== END 2024-03-13 16:45 | disposition home or self-care (01) | DRG 720 ==
LOC: JER 12:44 → JERBED 15:36 → J4W 03-08 04:28
PROVIDERS: ADMIT Internal Medicine; ATTEND Internal Medicine
DX: A41.51 Sepsis due to Escherichia coli [E. coli] (principal); I25.10 Atherosclerotic heart disease of native coronary artery without angina pectoris; E78.5 Hyperlipidemia, unspecified; D72.829 Elevated white blood cell count, unspecified; D64.9 Anemia, unspecified; N13.30 Unspecified hydronephrosis; N39.0 Urinary tract infection, site not specified; N17.9 Acute kidney failure, unspecified; I12.9 Hypertensive chronic kidney disease with stage 1 through stage 4 chronic kidney disease, or unspecified chronic kidney disease; E11.22 Type 2 diabetes mellitus with diabetic chronic kidney disease; N18.4 Chronic kidney disease, stage 4 (severe); R50.9 Fever, unspecified; D63.1 Anemia in chronic kidney disease; D50.9 Iron deficiency anemia, unspecified; Z95.1 Presence of aortocoronary bypass graft
CPT/HCPCS: 0241U-QW; 36415; 71046-TC-FY; 76705-TC; 76775-TC; 80048; 80053; 81003; 82272; 82728; 82803; 82962; 83540; 83550; 83605; 83735; 84100; 84443; 84484; 85025; 85027; 86803; 86850; 86900; 86901; 87040; 87086; 87186; 87389; 93005; 93010; 93306-TC; 97116-GP; 97161-GP; 99285-25; J1644